=== PATIENT | male | born 1980 | race Caucasian/White ===

== ENCOUNTER 2017-05-08 15:45 | Emergency (ER) | payer BC ==
--- NOTE | 2017-05-08 16:14 | EDM.PDOC ---
ED HPI GENERAL MEDICAL PROBLEM - General Chief Complaint: Chest Pain Stated Complaint: CHEST PAIN Time Seen by Provider: 05/08/17 16:14 - History of Present Illness INITIAL COMMENTS - FREE TEXT/NARRATIVE: 36-year-old male presents emergency room with chest pain. Patient has had chest pain on and off for 3 months. At times he has reflux symptoms will wake up in the middle the night with burning sensation in the back of his throat. At other times it feels very sharp pain is substernal and sometimes left-sided does not radiated into his arm or arms. Is not associated with shortness of breath. Patient has no history of heart problems in the past he has a negative family history. Patient does not smoke or use illicit drugs however at times he drinks he drinks 2-3 times a week and these episodes of drinking are usually fairly heavy. Chest Pain Score (Numeric/FACES): 3 - Related Data Allergies Allergy/AdvReac Type Severity Reaction Status Date / Time Sulfa (Sulfonamide Allergy Cannot Verified 05/08/17 15:53 Antibiotics) Remember Home Meds: Home Meds Esomeprazole Magnesium [Nexium] 40 mg PO QAM #30 capsule. 05/08/17 [Rx] Sucralfate [Carafate] 1 gm PO QIDACANDBED #28 tablet 05/08/17 [Rx] Past Medical History - Past Health History Medical/Surgical History: Denies Medical/Surgical History Social & Family History - Recreational Drug Use Recreational Drug Use: No ED ROS GENERAL - Review of Systems Review Of Systems: See Below Constitutional: Reports: No Symptoms HEENT: Reports: No Symptoms Respiratory: Reports: No Symptoms, Pleuritic Chest Pain. Denies: Shortness of Breath, Cough Cardiovascular: Reports: Chest Pain Endocrine: Reports: No Symptoms GI/Abdominal: Reports: Abdominal Pain (He has mild upper abdominal discomfort). Denies: Constipation, Diarrhea, Nausea, Vomiting : Reports: No Symptoms Musculoskeletal: Reports: No Symptoms Neurological: Reports: No Symptoms ED EXAM, GENERAL - Physical Exam Exam: See Below Exam Limited By: No Limitations General Appearance: Alert, No Apparent Distress Head: Atraumatic, Normocephalic Neck: Normal Inspection, Supple, Non-Tender, Full Range of Motion. No: Lymphadenopathy (L), Lymphadenopathy (R) Respiratory/Chest: No Respiratory Distress, Lungs Clear, Normal Breath Sounds, Other (With palpation he has some chest wall discomfort that tends to mimic some of this this is the left side of the sternum.) Cardiovascular: Regular Rate, Rhythm, No Edema, No Murmur GI/Abdominal: Normal Bowel Sounds, Soft, Other (He has some vague upper abdominal epigastric discomfort. No rigidity no rebound or guarding noted) Back Exam: Normal Inspection, Full Range of Motion. No: CVA Tenderness (L), CVA Tenderness (R) EKG INTERPRETATION EKG Date: 05/08/17 Rhythm: NSR [place]: Normal P-Wave: Present QRS: Normal ST-T: Normal QT: Normal Comparison: NA - No Prior EKG Course - Vital Signs Last Recorded V/S: Last Vital Signs Temp 36.7 C 05/08/17 15:53 Pulse 92 05/08/17 15:53 Resp 22 H 05/08/17 15:53 BP 140/83 05/08/17 15:53 Pulse Ox 97 05/08/17 15:53 - Orders/Labs/Meds Orders: Active Orders 24 hr Category Date Time Status EKG Documentation Completion [RC] ASDIRECTED Care 05/08/17 15:56 Active Chest 1V Frontal [CR] Stat Exams 05/08/17 16:23 Taken EKG 12 Lead [EK] Stat Ther 05/08/17 15:56 Ordered Labs: Laboratory Tests 05/08/17 05/08/17 05/08/17 Range/Units 16:36 16:36 16:36 WBC 10.31 H (4.23-9.07) K/mm3 RBC 5.20 (4.63-6.08) M/mm3 Hgb 16.0 (13.7-17.5) gm/L Hct 46.6 (40.1-51.0) % MCV 89.6 (79.0-92.2) fl MCH 30.8 (25.7-32.2) pg MCHC 34.3 (32.2-35.5) g/dl RDW Std Deviation 41.3 (35.1-43.9) fL Plt Count 204 (163-337) K/mm3 MPV 11.2 (9.4-12.3) fl Neutrophils % (Manual) 68 H (40-60) % Band Neutrophils % 0 (0-10) % Lymphocytes % (Manual) 25 (20-40) % Atypical Lymphs % 0 % Monocytes % (Manual) 6 (2-10) % Eosinophils % (Manual) 1 (0.8-7.0) % Basophils % (Manual) 0 L (0.2-1.2) Platelet Estimate Adequate Plt Morphology Comment Normal RBC Morph Comment Normal D-Dimer, Quantitative < 0.19 L (0.19-0.59) mg/L Sodium 141 (136-145) mEq/L Potassium 3.8 (3.5-5.1) mEq/L Chloride 104 (98-107) mEq/L Carbon Dioxide 27 (21-32) mEq/L Anion Gap 13.8 (5-15) BUN 12 (7-18) mg/dL Creatinine 1.1 (0.7-1.3) mg/dL Est Cr Clr Drug Dosing 114.75 mL/min Estimated GFR (MDRD) > 60 (>60) mL/min BUN/Creatinine Ratio 10.9 L (14-18) Glucose 114 H (74-106) mg/dL Calcium 8.7 (8.5-10.1) mg/dL Total Bilirubin 0.5 (0.2-1.0) mg/dL AST 37 (15-37) U/L ALT 71 H (16-63) U/L Alkaline Phosphatase 78 (46-116) U/L Troponin I < 0.017 (0.00-0.056) ng/mL Total Protein 8.0 (6.4-8.2) g/dl Albumin 3.9 (3.4-5.0) g/dl Globulin 4.1 gm/dL Albumin/Globulin Ratio 1.0 (1-2) Lipase 146 (73-393) U/L Meds: Medications Discontinued Medications Generic Name Dose Route Start Last Admin Trade Name Freq PRN Reason Stop Dose Admin Al Hydroxide/Mg Hydroxide 30 0 ml 05/08/17 16:24 05/08/17 16:38 ml/ Lidocaine HCl 15 ml PO 05/08/17 16:25 45 ml ONETIME ONE Administration Sucralfate 1 gm 05/08/17 17:59 Carafate PO 05/08/17 18:00 ONETIME ONE - Re-Assessments/Exams Free Text/Narrative Re-Assessment/Exam: 05/08/17 18:05 The patient got some improvement with a GI cocktail. At this point labs are nondiagnostic EKG is entirely normal we will treat him for GERD with close clinical follow-up if he does not have significant improvement over time with this he should undergo a stress Cardiolite. He also needs to establish with her regular provider. This is discussed in detail with the patient and he agrees to pursue this course of treatment. We also discussed him staying away from alcohol as this can indeed be a trigger for what he is experiencing. Departure - Departure Time of Disposition: 18:02 Disposition: Home, Self-Care 01 Clinical Impression: Atypical chest pain, Gastroesophageal reflux disease Prescriptions: Esomeprazole Magnesium [Nexium] 40 mg PO QAM #30 capsule. Sucralfate [Carafate] 1 gm PO QIDACANDBED #28 tablet Instructions: Nonspecific Chest Pain, [id number], Gastroesophageal Reflux Disease, Adult, [id number] Referrals: PCP,None [Primary Care Provider] - Forms: ED Department Discharge Additional Instructions: Return to the emergency room with any questions problems worsening symptoms. Follow-up in the Hospital clinic on or Monday of this week for a recheck. [id number] If you do not get significant improvement from the treatment started today discuss the importance of getting a heart stress test done. You have been started on 2 medications the first one is Carafate take one 4 times a day just before breakfast lunch and supper and at bedtime. You've also been started on Nexium take one every morning one hour before breakfast. - My Orders Last 24 Hours: My Active Orders 05/08/17 15:56 EKG Documentation Completion [RC] ASDIRECTED EKG 12 Lead [EK] Stat 05/08/17 16:23 Chest 1V Frontal [CR] Stat - Assessment/Plan Last 24 Hours: My Active Orders 05/08/17 15:56 EKG Documentation Completion [RC] ASDIRECTED EKG 12 Lead [EK] Stat 05/08/17 16:23 Chest 1V Frontal [CR] Stat
[2017-05-08] MEDS ORDERED: Alum Hydrox/Mag Hydrox/Simeth 30 ML, Lidocaine 2% 15 ML PO ONE ×2 (16:24)
[2017-05-08] MEDS ORDERED: Sucralfate Suspension 1 GM/10 ML Cup PO ONE (17:59)
--- NOTE | 2017-05-09 11:39 | CR ---
Chest: Portable view of the chest was obtained. Comparison: No prior chest x-ray. Heart size and mediastinum are within normal limits. Lungs are clear. Bony structures are grossly intact. Impression: 1. Nothing acute is identified on portable chest x-ray. Diagnostic code #1
== END 2017-05-08 18:33 | disposition home or self-care (01) ==
LOC: JD.ED 15:45
DX: K21.9 Gastro-esophageal reflux disease without esophagitis (principal); R07.89 Other chest pain; Z88.2 Allergy status to sulfonamides
CPT/HCPCS: 36415; 71010; 80053; 83690; 84484; 85025; 85379; 93005; 99285; A9270; 93010; 99284

== ENCOUNTER 2017-07-31 09:34 | Emergency (ER) | payer BC ==
[2017-07-31] MEDS ORDERED: Sodium Chloride 0.9% 10 ML Syringe FLUSH PRN (10:07)
[2017-07-31] MEDS ORDERED: Sodium Chloride 0.9% 1,000 ML IV SCH ×2 (10:15→11:30)
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
[2017-07-31] MEDS ORDERED: LORazepam 2 MG/ML MDV IVPUSH ONE (15:18)
[2017-07-31] MEDS ORDERED: LORazepam 2 MG/ML MDV ONE (15:32)
== END 2017-07-31 16:07 | disposition home or self-care (01) ==
LOC: JD.ED 09:34
DX: F10.120 Alcohol abuse with intoxication, uncomplicated (principal); F17.210 Nicotine dependence, cigarettes, uncomplicated; Z79.899 Other long term (current) drug therapy; Z88.2 Allergy status to sulfonamides; Y90.0 Blood alcohol level of less than 20 mg/100 ml
CPT/HCPCS: 36415; 80053; 80306; 85025; 96361; 96374; 99284; G0480; J2060; J7040; J7050